=== PATIENT | female | born 1995 | race Caucasian/White ===

== ENCOUNTER 2019-05-20 10:02 | Outpatient (CLI) | payer BC ==
[~2019-05-20] VITALS: Ht 157.5 cm; Wt 51.3 kg
[2019-05-20 10:46] LABS: MICROSCOPIC INDICATED
[2019-05-20 10:48] LABS: CREATININE,URINE RANDOM 54.5 mg/dL
[2019-05-20 11:53] LABS: MEAN CORPUSCULAR HEMOGLOBIN 28.6 pg (27.0-34.8); MEAN CORPUSCULAR HGB CONC 33.4 g/dL (32.4-35.8); MEAN CORPUSCULAR VOLUME 85.7 fL (80-100); MEAN PLATELET VOLUME 8.3 fL (7.4-10.4); PLATELET COUNT 229 x10^3/uL (130-400); RED BLOOD COUNT 3.48 x10^6/uL (3.82-5.3); RED CELL DISTRIBUTION WIDTH 14.4 % (9.6-15.2)
[2019-05-20 12:02] LABS: CHLORIDE 110 mmol/L (98-107)
[2019-05-20 12:08] LABS: ALANINE AMINOTRANSFERASE 23 U/L (12-78); ALBUMIN 2.7 g/dL (3.4-5.0); ALKALINE PHOSPHATASE 105 U/L (45-117); ANION GAP 7 mmol/L (5-15); BILIRUBIN,TOTAL 0.4 mg/dL (0.2-1.0); CALCIUM 8.7 mg/dL (8.5-10.1); TOTAL PROTEIN 6.3 g/dL (6.4-8.2)
[2019-05-20 12:19] LABS: BASOPHILS # (AUTO) 0.04 x10^3/uL (0-0.1); BASOPHILS % (AUTO) 0 % (0-1); EOSINOPHILS # (AUTO) 0.01 x10^3/uL (0-0.4); EOSINOPHILS % (AUTO) 0 % (1-7); LYMPHOCYTES # (AUTO) 1.09 x10^3/uL (1-3.4); LYMPHOCYTES % (AUTO) 13 % (22-44); MD SCAN; MONOCYTES # (AUTO) 0.54 x10^3/uL (0.2-0.8); MONOCYTES % (AUTO) 6 % (2-9); NEUTROPHILS # (AUTO) 6.81 x10^3/uL (1.8-6.8); NEUTROPHILS % (AUTO) 80 % (42-75)
[2019-05-20] MEDS ORDERED: PREN1TAB10 PO (12:48)
[2019-05-20] MEDS ORDERED: FERR324T5 PO (12:49)
[2019-05-20] MEDS ORDERED: ASPI-515 PO (12:49)
[2019-05-20] MEDS ORDERED: NITR100C56 PO (12:50)
== END 2019-05-20 13:00 | disposition home or self-care (01) ==
LOC: LDOP 10:02
PROVIDERS: ATTEND Obstetrics & Gynecology
DX: O26.892 Other specified pregnancy related conditions, second trimester (principal); R03.0 Elevated blood-pressure reading, without diagnosis of hypertension; Z3A.26 26 weeks gestation of pregnancy
CPT/HCPCS: 36415; 80053; 81001; 82570; 84156; 85025; 87086; 99201; G0463

== ENCOUNTER 2019-06-15 20:08 | Outpatient (CLI) | payer BC, OTHER ==
[~2019-06-15] VITALS: Ht 157.5 cm; Wt 54.0 kg
[~2019-06-15 20:08] MED LIST: ASPI-515 PO; FERR324T5 PO; NITR100C56 PO; PREN1TAB10 PO
[2019-06-15 20:16] VITALS: BP 110/70
== END 2019-06-15 20:42 | disposition home or self-care (01) ==
LOC: LDOP 20:08
PROVIDERS: ATTEND Obstetrics & Gynecology
DX: O36.8130 Decreased fetal movements, third trimester, not applicable or unspecified (principal); Z3A.29 29 weeks gestation of pregnancy
CPT/HCPCS: 59025; 99211; G0463

== ENCOUNTER 2019-07-27 21:24 | Emergency (ER) | payer OTHER ==
[~2019-07-27] VITALS: Ht 157.5 cm; Wt 60.0 kg
--- NOTE | 2019-07-27 21:41 | NUR ---
PT REPORTS CHEST PAIN 08/30, 36 WEEKS GESTATION. PLACED VITALS SIGNS MONITORS. SAFETY FALL PRECAUTIONS IN PLACE.
[2019-07-27 22:12] LABS: MEAN CORPUSCULAR HEMOGLOBIN 23.5 pg (27.0-34.8); MEAN CORPUSCULAR VOLUME 73.3 fL (80-100); MEAN PLATELET VOLUME 9.1 fL (7.4-10.4); PLATELET COUNT 220 x10^3/uL (130-400); RED BLOOD COUNT 3.87 x10^6/uL (3.82-5.3)
--- NOTE | 2019-07-27 22:17 | NUR ---
RN at bedside for FHT. Tones audible x 1 minute. Baseline 140's Accels to 160's. Variability noted. Positive for movement, Denies leaking or bleeding. Advised to come up to labor and Delivery with any Obstetric concerns. Continue Kick count.
[2019-07-27 22:20] LABS: ALBUMIN 2.5 g/dL (3.4-5.0); ANION GAP 8 mmol/L (5-15); CALCIUM 8.8 mg/dL (8.5-10.1); CHLORIDE 112 mmol/L (98-107); CREATININE 0.56 mg/dL (0.55-1.02)
--- NOTE | 2019-07-27 22:31 | NUR ---
RESTING ON GURNEY, NO DISTRESS NOTED, RESPIRATIONS EVEN AND UNLABORED. VSS.
[2019-07-27 22:52] LABS: BASOPHILS # (AUTO) 0.01 x10^3/uL (0-0.1); BASOPHILS % (AUTO) 0 % (0-1); EOSINOPHILS # (AUTO) 0.01 x10^3/uL (0-0.4); EOSINOPHILS % (AUTO) 0 % (1-7); LYMPHOCYTES # (AUTO) 1.37 x10^3/uL (1-3.4); LYMPHOCYTES % (AUTO) 17 % (22-44); MD SCAN; MONOCYTES # (AUTO) 0.74 x10^3/uL (0.2-0.8); MONOCYTES % (AUTO) 9 % (2-9); NEUTROPHILS # (AUTO) 6.19 x10^3/uL (1.8-6.8); NEUTROPHILS % (AUTO) 74 % (42-75)
[2019-07-27 23:28] VITALS: BP 120/67
== END 2019-07-28 | disposition home or self-care (01) ==
LOC: ED 22:07
DX: O26.893 Other specified pregnancy related conditions, third trimester (principal); R07.89 Other chest pain; R06.00 Dyspnea, unspecified; Z3A.36 36 weeks gestation of pregnancy
CPT/HCPCS: 36415; 71045; 80048; 82040; 85025; 93005; 99285

== ENCOUNTER 2019-08-09 05:53 | Inpatient (IN) | payer OTHER ==
[~2019-08-09] VITALS: Ht 157.5 cm; Wt 64.0 kg
[2019-08-09] MEDS ORDERED: D5%-LACTATED RINGERS 1,000 ML IV SCH (05:56)
[2019-08-09] MEDS ORDERED: OXYTOCIN 30U/ 0.9% NaCL 500ML 500 ML IV PRN (05:56)
[2019-08-09] MEDS ORDERED: OXYTOCIN 30U/ 0.9% NaCL 500ML 500 ML IV ONE (05:56)
[2019-08-09] MEDS ORDERED: PENICILLIN GK 5,000,000 UNITS in DEXTROSE 5% 100 ML IVPB ONE (06:00)
[2019-08-09] MEDS ORDERED: TERBUTALINE 1 MG/ML, 1ML IVPush PRN (06:00)
[2019-08-09] MEDS ORDERED: FENTANYL PF 100 MCG/2ML IV PRN (06:00)
[2019-08-09] MEDS ORDERED: TERBUTALINE 1 MG/ML, 1ML SQ PRN (06:00)
[2019-08-09] MEDS ORDERED: FENTANYL PF 100 MCG/2ML IVPush PRN (06:00)
[2019-08-09] MEDS ORDERED: ONDANSETRON 2MG/ML, 2ML IVPush PRN (06:00)
[2019-08-09] MEDS ORDERED: CALCIUM CARBONATE 500 MG TAB.CHEW PO PRN (06:00)
[2019-08-09] MEDS ORDERED: NEWBORN KIT ONE (06:10)
[2019-08-09] MEDS ORDERED: MISOPROSTOL 200 MCG TABLET ONE (06:10)
[2019-08-09] MEDS ORDERED: OXYTOCIN 30U/ 0.9% NaCL 500ML 500 ML ONE ×2 (06:10→12:24)
[2019-08-09] MEDS ORDERED: LIDOCAINE 1%, 20ML ONE (06:10)
[2019-08-09] MEDS: LACTATED RINGERS 1,000 ML IV SCH ×2 (06:15→08:50)
[2019-08-09] MEDS ORDERED: LACTATED RINGERS 1,000 ML IV SCH ×2 (06:28→09:17)
[2019-08-09] MEDS ORDERED: FENTANYL/BUPIV./NS/PF 250 ML EPIDCONT SCH (06:28)
[2019-08-09 06:30] LABS: BASOPHILS # (AUTO) 0.03 x10^3/uL (0-0.1); BASOPHILS % (AUTO) 0 % (0-1); EOSINOPHILS # (AUTO) 0.01 x10^3/uL (0-0.4); EOSINOPHILS % (AUTO) 0 % (1-7); LYMPHOCYTES # (AUTO) 1.23 x10^3/uL (1-3.4); LYMPHOCYTES % (AUTO) 18 % (22-44); MD NO; MEAN CORPUSCULAR HEMOGLOBIN 23.3 pg (27.0-34.8); MEAN CORPUSCULAR HGB CONC 32.1 g/dL (32.4-35.8); MEAN CORPUSCULAR VOLUME 72.7 fL (80-100); MEAN PLATELET VOLUME 9.4 fL (7.4-10.4); MONOCYTES % (AUTO) 9 % (2-9); NEUTROPHILS # (AUTO) 4.81 x10^3/uL (1.8-6.8); NEUTROPHILS % (AUTO) 72 % (42-75); PLATELET COUNT 191 x10^3/uL (130-400); RED BLOOD COUNT 3.61 x10^6/uL (3.82-5.3); RED CELL DISTRIBUTION WIDTH 19.7 % (9.6-15.2)
[2019-08-09] MEDS ORDERED: LACTATED RINGERS 1,000 ML IVBOLUS PRN ×2 (06:30→09:30)
[2019-08-09] MEDS ORDERED: EPHEDRINE 50 MG/ML, 1ML IVPush PRN ×2 (06:30→09:30)
[2019-08-09 06:53] LABS: ALBUMIN 2.4 g/dL (3.4-5.0); ANION GAP 8 mmol/L (5-15); CALCIUM 8.8 mg/dL (8.5-10.1); CHLORIDE 113 mmol/L (98-107)
[2019-08-09 06:56] LABS: ALANINE AMINOTRANSFERASE 14 U/L (12-78); ALKALINE PHOSPHATASE 284 U/L (45-117); BILIRUBIN,TOTAL 0.2 mg/dL (0.2-1.0); TOTAL PROTEIN 5.9 g/dL (6.4-8.2)
[2019-08-09] MEDS ORDERED: FENTANYL PF 500 MCG, BUPIVACAINE/PF 0.5%, 30ML 62.5 ML in SODIUM CHLORIDE 0.9% 177.5 ML EPIDCONT SCH ×2 (07:00→09:17)
[2019-08-09] MEDS ORDERED: BUPIVACAINE 0.25% ONE (08:30)
[2019-08-09] MEDS ORDERED: PENICILLIN GK 2,500,000 UNITS in DEXTROSE 5% 100 ML IVPB SCH (10:00)
[2019-08-09] MEDS ORDERED: OXYTOCIN 30U/ 0.9% NaCL 500ML 500 ML IV SCH (12:01)
[2019-08-09] MEDS ORDERED: ONDANSETRON 2MG/ML, 2ML IV PRN (12:30)
[2019-08-09] MEDS ORDERED: ACETAMINOPHEN 325 MG TABLET PO PRN (12:30)
[2019-08-09] MEDS ORDERED: MISOPROSTOL 200 MCG TABLET PR PRN (12:30)
[2019-08-09] MEDS ORDERED: RHOGAM FROM BLOOD BANK 1 NOTE EA IM/IV ONE (12:30)
[2019-08-09] MEDS ORDERED: MAGNESIUM HYDROXIDE 8%, 30ML UDC PO PRN (12:30)
[2019-08-09] MEDS ORDERED: SIMETHICONE 80 MG CHEW TAB PO PRN (12:30)
[2019-08-09] MEDS ORDERED: OXYcodone/APAP 5/325MG TABLET PO PRN ×2 (12:30)
[2019-08-09] MEDS ORDERED: DIPH,PERTUSS(ACELL),TET VAC/PF NC IM-VACC PRN (12:30)
[2019-08-09] MEDS ORDERED: IBUPROFEN 600 MG TABLET ONE (13:23)
[2019-08-09] MEDS: IBUPROFEN 600 MG TABLET PO PRN ×2 (13:25→19:59)
[2019-08-09 14:45] VITALS: BP 129/85
[2019-08-09 19:05] VITALS: BP 136/85
[2019-08-09] MEDS: DOCUSATE 100 MG CAPSULE PO PRN (19:59)
[2019-08-09 20:20] LABS: BASOPHILS % (AUTO) 0 % (0-1); EOSINOPHILS # (AUTO) 0.01 x10^3/uL (0-0.4); EOSINOPHILS % (AUTO) 0 % (1-7); LYMPHOCYTES # (AUTO) 0.77 x10^3/uL (1-3.4); LYMPHOCYTES % (AUTO) 7 % (22-44); MD NO; MEAN CORPUSCULAR HEMOGLOBIN 22.9 pg (27.0-34.8); MEAN CORPUSCULAR HGB CONC 31.4 g/dL (32.4-35.8); MEAN CORPUSCULAR VOLUME 72.9 fL (80-100); MONOCYTES # (AUTO) 0.64 x10^3/uL (0.2-0.8); MONOCYTES % (AUTO) 6 % (2-9); NEUTROPHILS # (AUTO) 9.66 x10^3/uL (1.8-6.8); NEUTROPHILS % (AUTO) 87 % (42-75); PLATELET COUNT 206 x10^3/uL (130-400); RED BLOOD COUNT 3.46 x10^6/uL (3.82-5.3); RED CELL DISTRIBUTION WIDTH 19.9 % (9.6-15.2)
[2019-08-09 23:45] VITALS: BP 134/86
[2019-08-10] MEDS: IBUPROFEN 600 MG TABLET PO PRN ×2 (03:10→09:25)
[2019-08-10 03:45] VITALS: BP 134/86
[2019-08-10 07:50] VITALS: BP_SYST 101; BP_SYST 130; BP_DIAS 66; BP_DIAS 90
[2019-08-10] MEDS ORDERED: PRENATAL VIT/IRON/FA 1 EACH TABLET PO SCH (09:00)
[2019-08-10] MEDS: DOCUSATE 100 MG CAPSULE PO PRN (09:24)
[2019-08-10] MEDS ORDERED: IBUP-1222 PO (11:27)
== END 2019-08-10 12:42 | disposition home or self-care (01) | DRG 807 ==
LOC: LDIP 05:53 → 2NW 14:25
PROVIDERS: ADMIT Obstetrics & Gynecology; ATTEND Obstetrics & Gynecology
PROC: 10E0XZZ Delivery of Products of Conception, External Approach (ICD-10-PCS; principal; 2019-08-09)
PROC: 10907ZC Drainage of Amniotic Fluid, Therapeutic from Products of Conception, Via Natural or Artificial Opening (ICD-10-PCS; 2019-08-09)
PROC: 10H07YZ Insertion of Other Device into Products of Conception, Via Natural or Artificial Opening (ICD-10-PCS; 2019-08-09)
PROC: 3E0R3BZ Introduction of Anesthetic Agent into Spinal Canal, Percutaneous Approach (ICD-10-PCS; 2019-08-09)
PROC: 00HU33Z Insertion of Infusion Device into Spinal Canal, Percutaneous Approach (ICD-10-PCS; 2019-08-09)
DX: O13.4 Gestational [pregnancy-induced] hypertension without significant proteinuria, complicating childbirth (principal); Z37.0 Single live birth; Z3A.37 37 weeks gestation of pregnancy; O76 Abnormality in fetal heart rate and rhythm complicating labor and delivery
CPT/HCPCS: 36415; S0020; 80053; 84550; 85025; 86592; 86850; 86900; G0378; J2540; J3010; J2590; J7050; J7120